=== PATIENT | male | born 1985 | race Two or more races ===

== ENCOUNTER 2020-09-12 21:56 | Emergency (ER) | payer MEDICAID ==
[~2020-09-12] VITALS: Ht 167.6 cm; Wt 85.0 kg
[2020-09-12] MEDS ORDERED: anxiety med PO (22:07)
[2020-09-12 23:00] VITALS: BP 129/68
[2020-09-12] MEDS ORDERED: PERTUSS(ACELL),DIPH,TET VAC/PF 0.5 ML SYRINGE IM. ONE (23:00)
[2020-09-12] MEDS ORDERED: BACITRACIN 0.9 GM PACKET OINTMENT TP ONE (23:00)
[2020-09-12] MEDS ORDERED: CIPROFLOXACIN HCL 250 MG TABLET PO ONE (23:00)
[2020-09-12] MEDS ORDERED: DOXYCYCLINE HYCLATE 100 MG TABLET PO ONE (23:00)
== END 2020-09-12 23:25 | disposition home or self-care (01) ==
LOC: EMS 22:00
DX: S81.812A Laceration without foreign body, left lower leg, initial encounter (principal); F41.9 Anxiety disorder, unspecified; W45.8XXA Other foreign body or object entering through skin, initial encounter; Y93.89 Activity, other specified; Y92.89 Other specified places as the place of occurrence of the external cause; Y99.8 Other external cause status
CPT/HCPCS: 90471; 90715; 99283

== ENCOUNTER 2020-09-14 20:29 | Emergency (ER) | payer MEDICAID ==
[~2020-09-14] VITALS: Ht 154.9 cm; Wt 84.1 kg
[~2020-09-14 20:29] MED LIST: anxiety med PO
[2020-09-14 20:33] VITALS: BP 141/83
== END 2020-09-14 21:04 | disposition home or self-care (01) ==
LOC: EMS 20:30
DX: S81.812D Laceration without foreign body, left lower leg, subsequent encounter (principal); F41.9 Anxiety disorder, unspecified; X58.XXXD Exposure to other specified factors, subsequent encounter
CPT/HCPCS: 99281; Z7502